=== PATIENT | female | born 1980 | race Two or more races ===

== ENCOUNTER 2021-09-07 17:18 | Emergency (ER) | payer SELFPAY ==
[~2021-09-07] VITALS: Ht 162.6 cm; Wt 67.5 kg
[2021-09-07 18:05] LABS: BILIRUBIN,URINE NEGATIVE (NEG); CLARITY,URINE CLEAR; COLOR,URINE YELLOW; NITRITE,URINE NEGATIVE (NEG); PROTEIN,URINE NEGATIVE (NEG-TRACE); UROBILINOGEN,URINE 0.2 mg/dL (0.2 mg/dL)
[2021-09-07 18:11] LABS: BACTERIA,URINE FEW /HPF (0-FEW)
[2021-09-07 18:12] LABS: RBC,URINE 0 /HPF (0-2); WBC,URINE 0 /HPF (0-4)
--- NOTE | 2021-09-07 20:13 | PHYS DOC ---
Past Medical History Past Surgical History: , Tubal ligation Smoking Status: Current Some Day Smoker Alcohol Use: Occasionally General Adult EDM: Chief Complaint: PELVIC PAIN HPI: HPI: Patient is a 41 year old [place]er-speaking female who presents to the ED today complaining of 10 out of 10 burning vaginal pain, symptoms have been going on for almost 2 weeks. Patient states she was seen by the PCP on August 29, 2021, was started on Bactrim, she states she is still taking the Bactrim. Patient denies any fever, denies any urgency frequency or dysuria. Denies any concerns for STDs. Denies anything exacerbating or relieving the pain. Review of Systems: Review of Systems: Constitutional: Denies fever or chills. [] GI: Denies abdominal pain, nausea, vomiting, bloody stools or diarrhea. [] : Reports vaginal pain. Denies dysuria. [] Musculoskeletal: Denies back pain or joint pain. [] Integument: Denies rash. [] Neurologic: Denies headache, focal weakness or sensory changes. [] Psychiatric: Denies depression or anxiety. [] Heart Score: C/O Chest Pain: N/A Risk Factors: Risk Factors: DM, Current or recent (<one month) smoker, HTN, HLP, family history of CAD, obesity. Risk Scores: Score 0 - 3: 2.5% MACE over next 6 weeks - Discharge Home Score 4 - 6: 20.3% MACE over next 6 weeks - Admit for Clinical Observation Score 7 - 10: 72.7% MACE over next 6 weeks - Early Invasive Strategies Allergies: Allergies: Allergies Coded Allergies Type Severity Reaction Last Updated Verified No Known Drug Allergies 09/07/21 No Physical Exam: PE: Constitutional: Well developed, well nourished, no acute distress, non-toxic appearance. []. [] Pelvic exam External pelvic appears normal, cervix is visualized, closed, no CMT, no adnexal tenderness, trace amount of white discharge in the vaginal vault. No adnexal tenderness. Skin: Warm, dry, no erythema, no rash. [] Back: No tenderness, no CVA tenderness. [] Extremities: No tenderness, no cyanosis, no clubbing, ROM intact, no edema. [] Neurologic: Alert and oriented X 3, normal motor function, normal sensory function, no focal deficits noted. [] Psychologic: Affect normal, judgement normal, mood normal. [] Current Patient Data: Labs: Laboratory Tests Test 09/07/21 17:40 09/07/21 17:47 Urine Collection Type Void Urine Color Yellow Urine Clarity Clear Urine pH 6.0 (<5.0-8.0) Urine Specific [place] 1.015 (1.000-1.030) Urine Protein Negative mg/dL (NEG-TRACE) Urine Glucose (UA) Negative mg/dL (NEG) Urine Ketones (Stick) 15 mg/dL (NEG) Urine Blood Negative (NEG) Urine Nitrite Negative (NEG) Urine Bilirubin Negative (NEG) Urine Urobilinogen Dipstick 0.2 mg/dL (0.2 mg/dL) Urine Leukocyte Esterase Negative (NEG) Urine RBC 0 /HPF (0-2) Urine WBC 0 /HPF (0-4) Urine Squamous Epithelial Cells Mod /LPF Urine Bacteria Few /HPF (0-FEW) POC Urine HCG, Qualitative Hcg negative (Negative) Microbiology 09/07/21 Wet Prep - Final, Complete Vital Signs: Vital Signs Date Time Temp Pulse Resp B/P (MAP) Pulse Ox O2 Delivery O2 Flow Rate FiO2 09/07/21 17:45 98.4 81 16 137/94 (108) 100 Room Air 98.4 EKG: EKG: [] Radiology/Procedures: Radiology/Procedures: [] Course & Med Decision Making: Course & Med Decision Making Pertinent Labs and Imaging studies reviewed. (See chart for details) Is a 41-year-old female patient presenting to the ED today with vaginal burning pain, symptoms for almost 2 weeks. Was seen by the PCP and started on Bactrim. UA negative for infection, negative urine hCG, wet prep negative. Discharged home and instructed to follow-up with your DISTILLATION OPERATOR HELPER or PCP [place] [employer] used for [place] [employer] Disclaimer: Dragon Disclaimer: This electronic medical record was generated, in whole or in part, using a voice recognition dictation system. Departure Departure Impression: Primary Impression: Vaginal pain Disposition: HOME / SELF CARE / HOMELESS Condition: STABLE Referrals: NO PCP (PCP) KEVIN ARMENDARIZ MD follow up in one week Patient Instructions: Dysuria-Brief Additional Instructions: You were evaluated in the emergency room for vaginal pain, we did some tests in the emergency room which were negative for any acute findings. Please follow-up with your own doctor in 1 week. You can also follow-up with your DISTILLATION OPERATOR HELPER. OREN DAILEY OPERATIONS MANAGEMENT TRAINEE Sep 07, 2021 20:13
[2021-09-07 20:41] VITALS: BP 123/73
[2021-09-09 19:10] LABS: GC PROBE Negative (Negative)
== END 2021-09-07 20:31 | disposition home or self-care (01) ==
LOC: ER 17:18
DX: R10.2 Pelvic and perineal pain (principal); F17.200 Nicotine dependence, unspecified, uncomplicated; Z98.51 Tubal ligation status
CPT/HCPCS: 81001; 81025; 87491; 87591; 99284; Q0111; 99283